=== PATIENT | male | born 1980 | race Caucasian/White ===

== ENCOUNTER 2017-09-27 16:35 | Outpatient (CLI) | payer BC ==
[2017-09-27 17:17] LABS: #Basophils 0.1 thou/uL (0.0-0.2); #Eosinphils 0.3 thou/uL (0.0-0.7); #Lymphocytes 3.1 thou/uL (1.20-3.40); #Monocytes 0.5 thou/uL (0.11-0.59); #Neutrophils 3.1 thou/uL (1.40-6.50); %Basophils 1.4 % (0.0-1.0); %Eosinophils 3.6 % (0.0-10.0); %Lymphocytes 44.2 % (21.0-51.0); %Monocytes 7.7 % (0.0-10.0); Hematocrit 49.6 % (42.0-52.0); Mean Platelet Volume 6.9 fL (7.4-10.4); Red Blood Cell (RBC) Count 5.49 mill/uL (4.70-6.10); White Blood Cell (WBC) Count 7.1 thou/uL (4.8-10.8)
[2017-09-27 17:44] LABS: ALT (SGPT) 36 U/L (8-55); AST (SGOT) 23 U/L (5-34); Alkaline Phosphatase 67 U/L (40-150); Anion Gap 10 mmol/L (10-20); BUN (Urea Nitrogen) 8 mg/dL (8.9-20.6); Bilirubin, Direct 0.2 mg/dL (0.1-0.3); Bilirubin, Total 0.8 mg/dL (0.2-1.2); Calc. Creatinine Clearance 0 mL/min (70-130); Calcium 10.4 mg/dL (7.8-10.44); Carbon Dioxide 27 mmol/L (22-29); Chloride 105 mmol/L (98-107); Estimated GFR-MDRD Greater than 90; Globulin 2.8 g/dL (2.4-3.5); Protein, Total 7.4 g/dL (6.0-8.3)
== END 2017-09-27 16:36 | disposition home or self-care (01) ==
LOC: LABBT 16:35
PROVIDERS: ATTEND Surgery
DX: Z01.812 Encounter for preprocedural laboratory examination (principal); K80.20 Calculus of gallbladder without cholecystitis without obstruction
CPT/HCPCS: 80053; 80076; 85025

== ENCOUNTER 2017-10-01 07:53 | Day surgery (SDC) | payer BC ==
[2017-09-27 17:01] VITALS: BMI 34.1
[2017-10-01] MEDS ORDERED: cefOXitin 2 GM, Syringe 1 ML in Sterile Water 10 ML SLOW IVP ONE (08:30)
[2017-10-01] MEDS ORDERED: Midazolam HCl 2 mg/2 ml Vial ONE (08:35)
[2017-10-01] MEDS ORDERED: Ondansetron HCl/PF 4 MG/2 ML Vial ONE (08:40)
[2017-10-01] MEDS ORDERED: Lidocaine 1% PF 5 ML VIAL ONE (08:40)
[2017-10-01] MEDS ORDERED: Propofol 200 MG/20 ML VIAL ONE (08:40)
[2017-10-01] MEDS ORDERED: Dexamethasone 20 MG/5 ML VIAL ONE (08:40)
[2017-10-01] MEDS ORDERED: Glycopyrrolate 0.2 MG/ML 5 ML SYRINGE ONE (08:40)
[2017-10-01] MEDS ORDERED: Ketorolac Tromethamine 30 MG/ML VIAL ONE (08:40)
[2017-10-01] MEDS ORDERED: Bupivacaine PF 0.5% 30 ML VIAL ONE (09:35)
[2017-10-01] MEDS ORDERED: Lidocaine 2% w/Epinephrine 1:200K 20 ML VIAL ONE (09:35)
[2017-10-01] MEDS ORDERED: Fentanyl 250 MCG/5 ML VIAL ONE (09:48)
--- NOTE | 2017-10-01 11:10 | OP ---
PREOPERATIVE DIAGNOSIS: Symptomatic cholelithiasis. SURGEON: Hosea Spain M.D. PROCEDURE PERFORMED: Laparoscopic cholecystectomy. INDICATIONS: A 37-year-old male who has been having episodic right upper quadrant pain radiating to the back associated with nausea. Ultrasound showed cholelithiasis. FINDINGS: He had a single impacted stone with hydrops of the gallbladder. DESCRIPTION OF PROCEDURE: After informed consent was obtained, the patient was taken to the operatin g room and given general endotracheal anesthesia placed in the supine position. The abdomen was prep ped and draped in the usual fashion. Local anesthesia infiltrated subcutaneously and deep. A subumb ilical incision was performed. The subcutaneus divided sharply. The fascia was grasped and two stay sutures of 0 Vicryl placed to either side of midline. Midline incised. Digital palpation revealed no local adhesions. A blunt 10/12 mm trocar inserted. Pneumoperitoneum was created to a pressure of 15 mmHg. A 0 degree laparoscope inserted. Under direct vision, three 5 mm ports placed subcostally . Gallbladder grasped and advanced superiorly. The peritoneum was lysed distally to expose the cyst ic artery, cystic duct in critical view. The duct was triply ligated with Hemoclips and divided. Th e artery triply ligated with Hemoclips and divided. The gallbladder was removed from its fossa utili zing electrocautery, removed from the abdomen through the umbilical port. Hemostasis was assured. T rocars and retractors removed. The fascia closed with interrupted 0 Vicryl suture. The skin closed with interrupted 4-0 Monocryl. Dermabond applied. The patient tolerated the procedure well and dover sferred to recovery in good condition. Sponge and needle count verified correct x2.
[2017-10-01] MEDS ORDERED: Fentanyl 100 MCG/2 ML VIAL ONE (11:38)
[2017-10-01] MEDS ORDERED: HYDROcodone/Acetaminophen 5/325 mg Tablet ONE (12:42)
== END 2017-10-01 14:00 | disposition home or self-care (01) ==
LOC: SDC 07:53
PROVIDERS: ATTEND Surgery
PROC: 0FT44ZZ Resection of Gallbladder, Percutaneous Endoscopic Approach (ICD-10-PCS; principal; 2017-10-01)
DX: K80.10 Calculus of gallbladder with chronic cholecystitis without obstruction (principal); F17.200 Nicotine dependence, unspecified, uncomplicated; Z98.890 Other specified postprocedural states
CPT/HCPCS: 88304; 96374; A4216; J0694; J1100; J1885; J2001; J2250; J2405; J2704; J3010; S0020